=== PATIENT | male | born 1980 | race Caucasian/White ===

== ENCOUNTER 2019-10-11 15:16 | Emergency (ER) | payer BC, OTHER ==
[2019-10-11 15:30] VITALS: BP 150/85; PULSE 109
[2019-10-11] MEDS ORDERED: Bacitracin Oint 1 GM U/D Packet TOP ONE (15:38)
--- NOTE | 2019-10-11 15:39 | EDM.PDOC ---
ED HPI GENERAL MEDICAL PROBLEM - General Chief Complaint: Laceration Stated Complaint: LACERATION TO LEFT HAND Time Seen by Provider: 10/11/19 15:39 Source of Information: Reports: Patient History Limitations: Reports: No Limitations - History of Present Illness INITIAL COMMENTS - FREE TEXT/NARRATIVE: 39-year-old male with a laceration to his left hand. He was working when a utility knife slipped and cut the dorsal aspect of his left hand between the thumb and index finger. He has no significant distal numbness, and has full range of motion and the bleeding is now controlled. Onset: Sudden Duration: Hour(s): (Within the last hour) Location: Reports: Upper Extremity, Left Associated Symptoms: Reports: No Other Symptoms Left Hand Pain Score (Numeric/FACES): 5 - Related Data Allergies Allergy/AdvReac Type Severity Reaction Status Date / Time No Known Allergies Allergy Verified 10/11/19 15:30 Home Meds: Home Meds Chlorthalidone 12.5 mg PO DAILY 06/25/16 [History] Past Medical History HEENT History: Reports: None Cardiovascular History: Reports: Hypertension Respiratory History: Reports: None Gastrointestinal History: Reports: None Genitourinary History: Reports: None Musculoskeletal History: Reports: Other (See Below) Other Musculoskeletal History: bilat knee pain Neurological History: Reports: None Psychiatric History: Reports: ADHD Endocrine/Metabolic History: Reports: None Hematologic History: Reports: None Immunologic History: Reports: None Oncologic (Cancer) History: Reports: None Dermatologic History: Reports: None - Infectious Disease History Infectious Disease History: Reports: Chicken Pox, Mononucleosis - Past Surgical History Cardiovascular Surgical History: Reports: None Musculoskeletal Surgical History: Reports: Arthroscopic Knee, Other (See Below) Other Musculoskeletal Surgeries/Procedures:: right knee screws and jackie Social & Family History - Tobacco Use Smoking Status *Q: Current Every Day Smoker Years of Tobacco use: 19 Packs/Tins Daily: 0.5 - Caffeine Use Caffeine Use: Reports: Coffee, Soda - Recreational Drug Use Recreational Drug Use: No ED ROS GENERAL - Review of Systems Review Of Systems: See Below Constitutional: Denies: Fever Respiratory: Reports: No Symptoms Cardiovascular: Reports: No Symptoms GI/Abdominal: Reports: No Symptoms Neurological: Denies: Paresthesia ED EXAM, SKIN/RASH Exam: See Below Exam Limited By: No Limitations General Appearance: Alert, No Apparent Distress Respiratory/Chest: No Respiratory Distress Cardiovascular: Regular Rate, Rhythm Extremities: Other (Exam is otherwise limited to the left hand. The patient is a 2 cm laceration on the dorsal aspect of the hand in the web between the thumb and index finger. It is fairly deep but no significant deep structures are involved such as tendons or major vessels.) Neurological: No Motor/Sensory Deficits (No numbness along the ulnar aspect of the thumb or radial aspect of the index finger.) Course - Vital Signs Last Recorded V/S: Last Vital Signs Temp 97.5 F 10/11/19 15:28 Pulse 109 H 10/11/19 15:28 Resp 16 10/11/19 15:28 BP 150/85 H 10/11/19 15:28 Pulse Ox 98 10/11/19 15:28 - Orders/Labs/Meds Meds: Medications Discontinued Medications Generic Name Dose Route Start Last Admin Trade Name Freq PRN Reason Stop Dose Admin Bacitracin 1 dose 10/11/19 15:38 10/11/19 16:11 Bacitracin Oint 1 Gm TOP 10/11/19 15:39 1 dose ONETIME ONE Administration Lidocaine HCl 5 ml 10/11/19 15:38 10/11/19 16:11 Xylocaine-Mpf 1% INJECT 10/11/19 15:39 5 ml ONETIME ONE Administration - Re-Assessments/Exams Free Text/Narrative Re-Assessment/Exam: 10/11/19 16:37 The wound was washed thoroughly with saline after anesthesia with lidocaine. No foreign bodies were found. Four 4-0 Ethilon sutures were used to close the wound, topical bacitracin was applied as well as a bandage and dressing. Tetanus is current. Sutures can be removed in 9 days and the patient is to keep the wound covered and clean while healing. Departure - Departure Time of Disposition: 16:40 Disposition: Home, Self-Care 01 Clinical Impression: Laceration of left hand - Discharge Information Instructions: Laceration Care, Adult, [id number] Referrals: Honey Coyle MD [Primary Care Provider] - Forms: ED Department Discharge Care Plan Goals: Keep wound covered and clean while healing. Sutures can be removed in 9 days, recheck sooner if concerns of infection or not healing satisfactorily. Sepsis Event Note - Evaluation Sepsis Screening Result: No Definite Risk - Focused Exam Vital Signs: Vital Signs Temp Pulse Resp BP Pulse Ox 10/11/19 15:28 97.5 F 109 H 16 150/85 H 98 10/11/19 15:27 97.5 F 109 H 16 150/85 H 98 Date Exam was Performed: 10/11/19 Time Exam was Performed: 16:35
== END 2019-10-11 16:45 | disposition home or self-care (01) ==
LOC: JP.ED 15:16
DX: S61.412A Laceration without foreign body of left hand, initial encounter (principal); I10 Essential (primary) hypertension; F90.9 Attention-deficit hyperactivity disorder, unspecified type; F17.210 Nicotine dependence, cigarettes, uncomplicated; Z79.899 Other long term (current) drug therapy; W26.0XXA Contact with knife, initial encounter
CPT/HCPCS: 12001; 99282; J2001